=== PATIENT | female | born 1950 | race Caucasian/White ===

== ENCOUNTER 2018-11-09 08:51 | Inpatient (IN) | payer MEDICARE, MEDICAID, SELFPAY ==
[2018-11-04 11:48] VITALS: BMI 24.1
[2018-11-09] VITALS (21 sets, daily range): BP systolic 92–140; BP diastolic 48–83; PULSE 58–84; RESP 9–18; TEMP 36.3–37.1; O2SAT 91–99; BMI 24.1
--- NOTE | 2018-11-09 | DI.RAD.S_ITS ---
PROCEDURE: XR LUMBAR SPINE 2-3V INDICATIONS: L4-5, L5-S1 TLF TECHNIQUE: 2 views of the lumbar spine were acquired. COMPARISON: [facility], CR, XR LUMBAR SPINE 2 OR 3 VIEWS, 10/09/2017, 8:23. [facility], MR, MR LUMBAR SPINE WITHOUT CONTRAST, 10/14/2018, 19:19. FINDINGS: 2 intraoperative fluoroscopy images demonstrate discectomy and posterior fusion at L4-L5 and L5-S1. Surgical hardware appear in expected position. IMPRESSION: Discectomy and posterior fusion at L4-L5 and L5-S1. Dictated by: Delfino Rios M.D. on 11/09/2018 at 15:04 Approved by: Delfino Rios M.D. on 11/09/2018 at 15:05
--- NOTE | 2018-11-09 09:40 | PM.PREOP ---
Pre-operative Note Interval Note History & Physical reviewed/Exam performed by Physician: Yes Changes to H&P: No
[2018-11-09] MEDS: LACTATED RINGERS 1,000 ML 42 ML IV ×3 (10:06→14:57)
--- NOTE | 2018-11-09 10:28 | P.OP_ITS ---
Operative Date/Time/Diagnoses Date of procedure: 11/09/18 Time of procedure: 15:03 Pre-op diagnosis: Lumbar stenosis with radiculopathy Lumbar spondylolisthesis Post-op diagnosis: same Procedure & Clinicians Procedure: L4-5 and L5-S1 TLIF (post/post innerbody fusion) with cages L4, L5, S1 screws Iliac crest bone graft aspirate L4-5 and L5-S1 laminectomies Use of microscope Placement of epidural catheter Same procedure as scheduled: Yes Indications: [age] year old female with intractable pain from stenosis. They had failed conservative management and requested operative intervention. Risks and benefits of surgery were discussed and appropriate consents were obtained. Surgeon: Randall Cloud Death Surveys Coder: Alanna Musa Anesthesia Type: General Operative Notes Findings: None Closure Type: primary Specimen(s): none sent Prosthetic devices, grafts, tissues, transplants, or devices: NuVasive MAS reline screws Globus Rise cage Applied: catheter Estimated Blood Loss (mL): 20 Procedure in detail: The patient was brought to the operating room and intubated on the table. A time-out was performed. They were then rolled over to the well- padded Kavon table in the prone position. Preoperative antibiotics were given. The back was prepped and draped in the standard sterile fashion. Using fluoroscopy, a 4 cm longitudinal incision was made to the right of the midline. We used Bovie to come down to and split the lumbodorsal fascia. Using fluoroscopy and monitoring, we then percutaneously placed Jamshidi needles down the pedicles of L4, L5, and S1 on the right side. These were changed out to guidewires and then we tapped and then placed the NuVasive MAS Reline screw shanks. We then opened up the retractors and used Bovie to clear up the posterolateral gutter as well as medially along the lamina to the spinous processes. A bur was used to decorticate the transverse processes. We brought in the microscope. Using a combination of bur and Kerrison rongeurs, a laminectomy was performed from the right side. We cleared over past the midline and carefully depressed the dura until we were able to decompress the opposite side. We cleared out the neural foramen. This completed the rivera inectomy at L5-S1. We then began the TLIF prep. A complete facetectomy was performed on this side at L5-S1. We carefully cleaned up the remainder of the foramen until we could easily retract the exiting root as well as clearing medially below the dura and expose the disc space. The disc was prepped with bipolar and then an annulotomy was performed. We performed a diskectomy using a combination of paddles, armando, pituitaries, and curettes. We distracted the disc using a paddle and locked the retractor in an open position. We then filled the disc space with Osteocel bone graft. We then placed the globus Rise cage under fluoroscopy and then filled this in with more bone graft. The distraction on the retractor was released to compress down. This completed the posterior interbody fusion portion of the TLIF at L5-S1. We then moved up to the L4-5 level. The retractor was transferred up to the L4 screw. We cleared off the soft tissue medially and from the gutter. The L4 transverse processes was decorticated. We then performed a right-sided laminectomy at L4-5 with the bur and Kerrisons. We reached across the opposite side while carefully depressing the dura with a ball probe and cleared up the central canal and then clear the foramen. This was separate and distinct from a TLIF approach as we had to decompress the canal. We then performed a facetectomy on the right at L4-5. We retracted the dura medially and expose the disc. This was prepped with bipolar. A scalpel used to perform an annulotomy and then we used pituitaries, paddles, Armando, curettes to perform a complete diskectomy at the L4-5 level. bone graft was injected into the disc space and then we placed another globus Rise cage and opened it under fluoroscopic guidance. We packed more bone graft. This completed the posterior interbody portion of the TLIF at L4-5. We realized under fluoroscopy that while distracting across the L4 and L5 screws, the L5 screw had pulled through the inferior aspect of the pedicle. We directly visualized this and could confirm it. The L5 screw was removed. We made a new screw hole plan with fluoroscopy and neuro monitoring and the Jamshidi and then placed a larger 7.5 mm screw at this level. We then placed the screw heads, afia, and locked down the set screws. The wound was copiously irrigated. A small stab incision was made over the PSIS. We used a Jamshidi needle to aspirate several mL of bone marrow from the pelvis. This was mixed with the remaining Osteocel and combined with all of the locally harvested bone graft and placed in the posterolateral gutter for the posterior fusion of the TLIF at L4-5 and L5-S1. An epidural catheter was then placed in the spinal canal by carefully depressing the dura and advancing it 6 cm cephalad under the remaining lamina without resistance. The muscle fascia was closed. The catheter was then injected with a solution containing 4 mL of 0.5% Marcaine, 1 mg Stadol, 4 mg Duramorph, and 100 mcg of fentanyl. This was injected without resistance and the catheter was pulled. We then went to the opposite side. Again using fluoroscopy, a 3 cm incision was made and Bovie was used to come down to split the fascia. Using neural monitoring and fluoroscopy, Jamshidi needles were advanced down the pedicles of L4, L5, S1 on the left side. These were switched over guidewires, tapped, and screws placed. We then placed a afia and locked the set screws on this side. The wound was irrigated. The fascia was closed. Vancomycin powder was placed in the wounds. The superficial and skin were closed. A sterile dressing was placed. The patient was then rolled over extubated and brought to recovery room without complications. Complications: none Condition: stable Disposition: PACU Plan for aftercare: Inpatient. Up with physical therapy. Anticipate discharge to custodial.
[2018-11-09] MEDS: CEFAZOLIN 2 GM/100 ML FROZ.PIGGY IV ×2 (10:36→18:30)
--- NOTE | 2018-11-09 11:13 | SUR.OPER ---
Prone on spine table, head in foam head support, padded chest and pelvic supports, gel pad at knees, lower legs supported by pillows; nipples, genitalia and toes free of pressure, arms secured on foam padded arm boards at <90 degrees abduction. Tape over blanket at thigh secured to table.
[2018-11-09] MEDS: THROMBIN (RECOMBINANT) 5,000 UNIT VIAL 5000 UNIT TOP (11:18)
[2018-11-09] MEDS: BUPIVACAINE 0.5% (PF) 4 ML, MORPHINE-PF 4 MG, BUTORPHANOL 1 MG, fentaNYL 100 MCG INJ (11:19)
[2018-11-09] MEDS: SODIUM CHLORIDE 0.9% 1,000 ML, GENTAMICIN 80 MG IRR (11:20)
[2018-11-09] MEDS: VANCOMYCIN 1,000 MG VIAL 1000 MG TOP (11:47)
--- NOTE | 2018-11-09 14:58 | SUR.PHASEI ---
oxygen decrased to 2l/cannula.
[2018-11-09] MEDS: HYDROMORPHONE 2 MG INJ 0.25 MG IV ×2 (15:21→15:41)
[2018-11-09] MEDS: hydrOXYzine 50 MG/ML INJ 25 MG IM (15:56)
[2018-11-09] MEDS: LACTATED RINGERS 1,000 ML 125 ML IV (16:45)
[2018-11-09] MEDS: CELECOXIB 200 MG CAPSULE 400 MG PO (16:53)
[2018-11-09] MEDS: HYDROCODONE/ACET 5/325 TABLET 2 TAB PO ×2 (17:33→21:50)
[2018-11-09] MEDS: hydrOXYzine pamoate 25 MG CAPSULE PO (17:33)
[2018-11-09] MEDS: NICOTINE 14 PATCH 14 MG TOP (21:38)
[2018-11-09] MEDS: CELECOXIB 200 MG CAPSULE PO (21:38)
[2018-11-09] MEDS: LISINOPRIL 5 MG TABLET PO (21:39)
[2018-11-09] MEDS: DOCUSATE 100 MG CAPSULE PO (21:39)
[2018-11-09] MEDS: PROPRANOLOL 40 MG TABLET 80 MG PO (21:40)
[2018-11-09] MEDS: SERTRALINE 50 MG TABLET 200 MG PO (21:41)
[2018-11-09] MEDS: clonazePAM 0.5 MG TABLET PO (21:50)
[2018-11-09] MEDS: CYCLOBENZAPRINE 10 MG TABLET PO (21:50)
--- NOTE | 2018-11-09 22:21 | PC.NURSE ---
Pt arrived on floor from PACU at 1630. 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 Pt began to de-sat to the low 80s and then would return to mid 90s but overall unable to sustain sats without O2. Pt reports she has hx of sleep apnea but does not use a c pap machine. Dressing to mid back CDI. Rates pain at 5/10. Pain controlled with vicodin and vistaril given earlier. Pt restless at times and using buttons to move position in bed. Dtr called and said pt has hx of confusion with pain meds. Pt does not appear to be confused but is very restless at times. Oriented to self and place. Li catheter draining clear yellow urine. Pt eating and drinking well without nausea. O2 sats = 97% on 2L
[2018-11-10] MEDS: LACTATED RINGERS 1,000 ML 125 ML IV (00:45)
[2018-11-10] MEDS: CEFAZOLIN 2 GM/100 ML FROZ.PIGGY IV (02:38)
[2018-11-10] MEDS: HYDROCODONE/ACET 5/325 TABLET 2 TAB PO ×2 (05:38→10:26)
[2018-11-10 05:50] VITALS: BP 93/53; PULSE 69; RESP 16; TEMP 36.6; O2SAT 99
[2018-11-10 06:22] LABS: Hematocrit 27.2 % (36-46); Hemoglobin 9.1 g/dL (12.0-16.0)
--- NOTE | 2018-11-10 07:58 | PM.PNPO.1 ---
Subjective Date Patient Seen: 11/10/18 Time Patient Seen: 07:58 Interval history: Pain is 6 at rest, 10 with activity. All across the back, nothing more in the legs. Exam Vital Signs (past 8 hours): - 11/10/18 05:50 Temperature 97.9 F Pulse Rate 69 Respiratory Rate 16 Blood Pressure 93/53 L Pulse Oximetry 99 Oxygen Delivery Method Nasal Cannula Oxygen Flow Rate 2 Const Orientation: alert and oriented x3 Back/Spine/Pelvis Other: Mild drainage. 5/5 motor both lower extremities. Objective Labs Result Diagrams: 11/10/18 06:00 Labs: Laboratory Results - last 24 hr 11/10/18 06:00 Hgb 9.1 L Hct 27.2 L Assessment & Plan Post-op Postoperative Procedures Operation Date: 11/09/18 10:45 Actual Procedures Side Surgeon p L4-5, L5-S1 TLIF w/Instru. fusion & bone graft Randall Cloud MD She is stable. Mobilize today with physical therapy. Anticipate discharge to jail in a few days. Quality VTE Deep Vein Thrombosis/Pulmonary Embolism Present on Admission: No
[2018-11-10 08:53] VITALS: PULSE 70; RESP 18; O2SAT 97
[2018-11-10 09:00] VITALS: BP 102/60; PULSE 72; RESP 16; TEMP 36.7; O2SAT 96
[2018-11-10 09:03] VITALS: O2SAT 95
[2018-11-10] MEDS: CELECOXIB 200 MG CAPSULE PO ×2 (09:03→20:52)
[2018-11-10] MEDS: clonazePAM 0.5 MG TABLET PO ×4 (09:03→20:57)
[2018-11-10] MEDS: NICOTINE 14 PATCH 14 MG TOP (09:05)
[2018-11-10] MEDS: DOCUSATE 100 MG CAPSULE PO ×2 (09:05→20:54)
[2018-11-10] MEDS: CYCLOBENZAPRINE 10 MG TABLET PO ×4 (09:09→21:33)
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
[2018-11-10] MEDS: HYDROMORPHONE 0.5 MG INJ IV (12:57)
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
[2018-11-10] MEDS: OXYCODONE IR 5 MG TABLET 10 MG PO ×3 (14:37→20:52)
--- NOTE | 2018-11-10 15:13 | PC.NURSE ---
Ortho: Pain control issues, Tried vicodin, flexaril, and she took her clonazepam. Vicodin lasted 2 hours and was given IV dilaudid and Dr. Cloud was called and order received for oxycodone. Oxycodone working better for pain relief. More comfortable this afternoon. Did get up with PT and sat in chair for a short time. Walked short distance around the bed. Pt is having sciatica and numbness type sensation down the right leg. This has remained unchanged through out the day and was present preop. BP 90's to 100's systolic, is taking po fluids. BP meds held and JOSE Munoz was made aware. Sl dizzy when up but BP posturals checked and there was no change. Was able to amb. Resting quietly at the moment.
[2018-11-10 15:39] VITALS: BP 137/88; PULSE 73; RESP 18; TEMP 37.3; O2SAT 96
--- NOTE | 2018-11-10 16:08 | CM.DANOTE ---
Patient is a 68 year old female who was admitted for planned Ortho Surgery. Pt has MCR and LAURIE for insurance and her PCP is Dr. Martinez. EMR was reviewed. Per Dr. Cloud, pt could benefit from SNF at d/c. Per PT, recommending SNF at d/c. SW met bedside with pt and explained role and updated white board and pt confirms that she lives at home alone in [facility] and is independent with ADL's at baseline although has had constant pain for the past 3 months without relief. Pt denies any hx of HH or SNF but states she feels SNF is needed before safe d/c home. SW provided the SNF Choice List and pt requests referrals made to [facility] and [facility]. SW left ms requesting [facility] fax clinical referral to both SNF's in the morning as end of SW shift and staff gone for the day. Plan: SW to follow for referrals to [facility] and [facility] tomorrow morning and review to determine which SNF can accept pt at d/c. ALESSANDRA Ayon Discharge Planning/Care Management CM Discharge Assessment Start: 11/10/18 16:07 Freq: Status: Active Protocol: Document 11/10/18 16:07 BF (Rec: 11/10/18 16:08 BF [id number]) Discharge Planning Assessment Assigned Crester ALESSANDRA Sullivan Advance Directives? No History Provided By Patient Medical Record Has Patient been admitted in last 30 No days? Prior Living Arrangements House Household Members none Type of transporation used prior to Drives own vehicle admit Independent with ADL's Yes Is patient alert and oriented? Yes Patient/Family Preference Senior Care Facility Barriers to Discharge No Discharge Plan Senior Care Facility Referrals Initiated Senior Care Medicare Choice List Provided Yes SNF/HH Preference [facility] Whiteboard Updated in Patient Room with Yes name and ext. # of Crester Review Status In Process Please Provide Date Initial DC 11/10/18 Assessment Was Performed Next Review Type Continued Stay Review Pre-Anesthesia Assessment Start: 11/04/18 11:48 Freq: Status: Complete Protocol: Document 11/04/18 11:48 CAB (Rec: 11/04/18 12:48 CAB [id number]) Pre-Anesthesia Assessment Patient Information Reviewed Via Phone Assessment Assessment Completed With Patient Diagnostic Results CBC EKG Comment Outside labs/EKG scanned to record Primary Care Provider Trista Martinez Medical Clearance Received Yes Seen Specialist in Last 12 Months Yes Specialist Seen Orthopedist Primary Language Belarusian Student Admissions Clerk Required No Height 168.91 cm Weight 68.946 kg Body Mass Index (BMI) 24.1 Hearing Ability Normal Visual Assist Magnifying Glass Dentition Type Teeth, Natural Present Teeth, Broken Teeth, Missing Barriers to Learning Memory Other Aids No Comment Hx small vessel brain disease per pt Hx Anesthesia Reactions No Hx Family Anesthesia Reaction No Hx Malignant Hyperthermia No Hx Blood Transfusions No Anesthesia Review Requested No 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 No Does patient have METZ/SOB No Hx Sleep Apnea Yes Currently Taking a Beta Kim No Can You Climb a Flight of Stairs Without Yes SOB Hx Chest Pain No Hx SOB No Hx Syncope or Dizziness No Anti-Coagulant Therapy No Has a Shop Welder No Cardiac Testing Yes: Stress test 09/14/17 scanned to record Hx Pacemaker/ICD No Pacemaker Rep Required? No Cardiac Clearance Received Not Applicable Diet Type At Home Regular dysphagia No Urinary Catheter Present No Hx Urinary Self Catheterization No Diabetes No Patient No Lactating No Hx Drug Resistant Organism No Presence of External or Internal Medical No Devices Have you traveled outside the [facility] in the last 30 days? Marital Status Lives With family Prior Living Arrangements House Number of Floors (Floors) Two Floors Support System Child/Children Sibling(s) Does the Patient Have Assistance After Minimal assistance available Surgery from family Patient Discharge Plan Description Senior Care Facility/Rehab Comment Lives w/sister, requesting to go to a snf Feels Safe in Current Environment Yes Been Physically Hurt or Threatened By a No Person in Current Environment Do you have thoughts of harming yourself None or others? Are you currently considering suicide? No Do you have a plan to hurt yourself or No Plan others? Do You Have Any Spiritual Beliefs That No May Affect Your HC Choices? Do You Have Any Cultural Practices That No May Affect Your HC Choices? Spiritual Referral None Who Can We Speak to About Patient's Care Family, friends Identifying Code for Release of Patient Declines to issue Information Health Care Proxy/Next of Kin Linsey (daughter) Sherrie ( daughter) Health Care Proxy Phone Number Linsey: [phone] Sherrie: pt to update dos Emergency Contact Name Linsey (daughter) Sherrie ( daughter) Mary (sister) Emergency Contact Phone Number Linsey: [phone] Sherrie: pt to update dos Mary: Advance Directives? No PAC Instructions Durable medical equipment Medications to take/avoid Nasal antibiotic No ETOH/petroleum product on skin DOS NPO Post-op transportation Pre-surgical wash Sturdy shoes/comfortable clothes Do not bring valuables and remove jewelry
--- NOTE | 2018-11-10 16:09 | PT.IPTN ---
Current Diagnoses Spondylolisthesis, lumbar region (11/09/18) Spinal stenosis, lumbar region with neurogenic claudication (11/09/18) Arthrodesis status (11/09/18) Surgery Performed Operation Date: 11/09/18 10:45 Actual Procedures p L4-5, L5-S1 TLIF w/Instru. fusion & bone graft - Randall Cloud MD Physical Therapy Treatment Note M2 PT-IP Current Condition Start: 11/10/18 12:46 Freq: NEEDED Status: Active Protocol: Document 11/10/18 10:13 AB (Rec: 11/10/18 12:59 AB [id number]) Physical Therapy Current Condition Current Condition Evaluation Date 11/10/18 Treatment Diagnosis s/p L4-5, L5-S1 TLIF/lami; difficulty in walking Onset Date 11/09/18 Precautions Lumbar Precautions Log Roll No Twisting Limit Bending Lifting Restriction of 10 lbs Gait Belt above Incisional Area Other Precautions Falls M3 PT-IP Subjective Start: 11/10/18 12:46 Freq: NEEDED Status: Active Protocol: Document 11/10/18 16:09 GGD (Rec: 11/10/18 16:09 GGD [id number]) Subjective Physical Therapy Visit Type Type Patient Refusal Notes Pt refused states that she having increase pain and is very tired. Will see in AM.
[2018-11-10] MEDS: hydrOXYzine pamoate 25 MG CAPSULE PO (17:09)
[2018-11-10 19:38] VITALS: BP 100/49; PULSE 78; RESP 16; TEMP 37; O2SAT 96
[2018-11-10] MEDS: PROPRANOLOL 40 MG TABLET 80 MG PO (20:52)
[2018-11-10] MEDS: SERTRALINE 50 MG TABLET 200 MG PO (20:55)
[2018-11-11] MEDS: OXYCODONE IR 5 MG TABLET 10 MG PO ×4 (00:50→19:26)
[2018-11-11 00:58] VITALS: BP 107/60; PULSE 70; RESP 16; TEMP 36.7; O2SAT 94
--- NOTE | 2018-11-11 01:22 | PC.NURSE ---
Addendum entered by Zoë Singh R.N. 11/11/18 05:46: Awakened for vitals and initially declined pain medication wanting to wait until next shift. When told that would be 7:30am she decided to take pain med. States pain is 5/10, worse with movement and requests 10mg rather than 5mg and it works better. Ice pack also applied for additional discomfort. Declined to have catheter removed until after PT today. Original Note: Patient is alert and oriented. Breath sounds CTA with RA sat of 94%. HRR. Denies nausea. BT present and states she is passing flatus. Indwelling catheter is patent with clear, yellow urine noted. Has been repositioning herself. Dressing to back is intact with quarter size amount of sero-sanguinous drainage noted and outlined. States pain with movement is 7/10; medicated with Oxycodone and ice pack applied for additional comfort. Complains of numbness in right foot but has good capillary refill and able to move extremity and has equal sensation on bilateral LE. Had foot SCD's on at shift change but are now off and patient states she is unable to sleep with them on; reminded to ankle wave when awake and she verbalizes understanding of risks. Fall risk score is moderate; bed alarm is activated.
[2018-11-11 05:54] VITALS: BP 102/75; PULSE 70; RESP 16; TEMP 37.1; O2SAT 95
[2018-11-11 08:00] VITALS: BP 118/70; PULSE 65; RESP 16; TEMP 36.4; O2SAT 95
[2018-11-11] MEDS: NICOTINE 14 PATCH 14 MG TOP (08:04)
[2018-11-11] MEDS: CELECOXIB 200 MG CAPSULE PO ×2 (08:04→22:14)
[2018-11-11] MEDS: DOCUSATE 100 MG CAPSULE PO (08:04)
[2018-11-11] MEDS: hydrOXYzine pamoate 25 MG CAPSULE PO (08:04)
[2018-11-11] MEDS: clonazePAM 0.5 MG TABLET PO (08:08)
[2018-11-11] MEDS: SODIUM CHLORIDE 0.9% FLUSH 10 ML IV ×3 (08:09→22:15)
--- NOTE | 2018-11-11 08:11 | PM.PNPO.1 ---
Subjective Date Patient Seen: 11/11/18 Time Patient Seen: 08:11 Interval history: Pain is very severe. Starting the back and now running down the right leg again. Does not feel her pain medication is adequate. Exam Vital Signs (past 8 hours): - 11/11/18 00:58 11/11/18 05:54 Temperature 98.0 F 98.7 F Pulse Rate 70 70 Respiratory Rate 16 16 Blood Pressure 107/60 102/75 Pulse Oximetry 94 95 Fraction of Inspired Oxygen 21 Oxygen Delivery Method Room Air Oxygen Flow Rate 0 Const Orientation: alert and oriented x3 Back/Spine/Pelvis Other: Mild drainage. 5/5 motor both lower extremities. Objective Labs Result Diagrams: 11/10/18 06:00 Assessment & Plan Post-op Postoperative Procedures Operation Date: 11/09/18 10:45 Actual Procedures Side Surgeon p L4-5, L5-S1 TLIF w/Instru. fusion & bone graft Randall Cloud MD Think the flared up since yesterday. I am going to increase her pain medication as well as give her some IV steroids to try to bring down the inflammatory pain. Quality VTE Deep Vein Thrombosis/Pulmonary Embolism Present on Admission: No
[2018-11-11] MEDS: OXYCODONE IR 5 MG TABLET 15 MG PO ×2 (08:27→11:30)
[2018-11-11] MEDS: DEXAMETHASONE 10 MG/ML VIAL IV (08:58)
--- NOTE | 2018-11-11 11:23 | OT.IP.TRT ---
Current Diagnoses Spondylolisthesis, lumbar region (11/09/18) Spinal stenosis, lumbar region with neurogenic claudication (11/09/18) Arthrodesis status (11/09/18) Surgery Performed Operation Date: 11/09/18 10:45 Actual Procedures p L4-5, L5-S1 TLIF w/Instru. fusion & bone graft - Randall Cloud MD Occupational Therapy Treatment Note M2 OT-IP Current Condition Start: 11/10/18 16:34 Freq: Status: Active Protocol: Document 11/10/18 16:34 PJM (Rec: 11/10/18 16:56 PJM [id number]) Occupational Therapy Current Condition Current Condition Evaluation Date 11/10/18 Treatment Diagnosis decreases self care, mobility s/p L4-S1 TLIFw/lami's Diagnosis Onset Date 11/09/18 Post Operative Precautions Lumbar Precautions Log Roll No Twisting Limit Bending Lifting Restriction of 10 lbs Gait Belt above Incisional Area Other Precautions fall risk, confusion (pt has hx of confusion on when on pain meds per chart notes) M3 OT- IP Subjective and Pain Start: 11/10/18 16:34 Freq: Status: Active Protocol: Document 11/11/18 11:23 PJM (Rec: 11/11/18 15:39 PJM [id number]) OT- Subjective Occupational Therapy Visit Type Type Treatment Note Visit Start Time 10:52 Visit Stop Time 11:23 Total Visit Minutes 31 Occupational Therapy Visit Comments Patient Comments I am due for pain meds in half an hour. This chair is not too comfortable. Patient/Caregiver Goals to go to rehab to get stronger , be able to do stairs and some cooking OT Pain Assessment Pain When Pain Assessed After Treatment Pain Present Pain Present Pain Reported Location Lower Back Intensity 4 Scale Used Numeric (1 - 10) Description Aching Acute Pain Behaviors Facial Grimacing Guarding Management Techniques Apply Cold Distraction Re-positioning Timing of Activity with Medications M4 OT- IP ADL's Start: 11/10/18 16:34 Freq: Status: Active Protocol: Document 11/11/18 11:23 PJM (Rec: 11/11/18 15:39 PJM [id number]) OT ADL-Grooming General Evaluation Grooming Ability Contact Guard Assistance Areas Needing Assistance Retrieving/Set-up of Grooming Items Combing/Brushing Hair Face Washing Comments OT Grooming Comments Pt had one loss of balance to the R when standing at sink due to R LE pain. OT ADL-Oral Care General Eval Oral Care Ability Contact Guard Assistance Devices Oral Care Devices Toothbrush Comments Oral Care Comments due to decreased standing balance OT ADL-Dressing General Eval Lower Body Dressing Ability Minimal Assistance Areas Needing Assistance Underpants/Brief Socks Assistive Devices Dressing Assistive Devices Air Control Electronics Operator Sock Aid Comments OT Dressing Comments practiced donning brief with scientologist and socks with sock aid, removing socks with scientologist using new equipt provided yesterday, pt needs mod verbal cues for unfamiliar techniques OT ADL-Toileting Comments OT Toileting Comments did not occur this session OT ADL-Bathing Bathing Type Bathing Type Shower Comments OT Bathing Comments pt would like to shower tomorrow M6 OT- IP Functional Cognition Start: 11/10/18 16:34 Freq: Status: Active Protocol: Document 11/11/18 11:23 PJ (Rec: 11/11/18 15:[address] [facility] [id number]) Cognitive Factors Limiting Selfcare Function Cognitive Ability Level of Alertness Alert Patient Orientation Name Age Birthday Month Date Year Day of Week Place Situation Attention Span Ability Capable of Focused Attention Capable of Sustained Attention Ability to Follow Commands Able to Follow One Step Commands Cognitive Comments Cognitive Assessment Comments Pt recalls 3/3 lumbar precautions, needs min cues to apply them during functional tasks. M7 OT- IP Mobility and Balance Start: 11/10/18 16:34 Freq: Status: Active Protocol: Document 11/11/18 11:23 PJM (Rec: 11/11/18 15:[address] [facility] [id number]) OT-Transfer Assessment Sit to and From Stand Sit to and from Stand Contact Guard Assistance Transfers Transfer Ability Contact Guard Assistance Technique Transfer Destination Chair Transfer Technique Stand Step Pivot Devices Transfer Assistive Devices Gait Belt Front Wheeled Walker OT- Gait Assessment Gait Gait Assistance Required: Contact Guard Assist Distance (Feet) 15 Assistive Devices Assistive Device Gait Belt Front Wheeled Walker Comments Gait Ability Comments to sink and back OT- Balance Assessment Sitting Balance and Reactions Static Sitting Balance Ability Good Dynamic Sitting Balance Ability Good Standing Balance and Reactions Static Standing Balance Ability Good Dynamic Standing Balance Ability Fair M9 OT- IP Assessment and Plan Start: 11/10/18 16:34 Freq: Status: Active Protocol: Document 11/11/18 11:23 PJM (Rec: 11/11/18 15:[address] [facility] [id number]) OT Summary Assessment and Plan Potential Rehabilitation Potential Good Summary OT Impairments Pain Strength Balance Functional Mobility Grooming Dressing Toileting Bathing Toilet Transfers Shower Transfers Progress Towards Goals Progressing Toward Goals Assessment Summary Pt making progress today but still has decreased activity tolerance due to pain and decreased balance standing at sink for grooming due to RLE pain. Pt demonstrating increased independence in lower body dressing with use of adaptive equipment, but needs further practice to be completely independent. Pt would like to shower tomorrow. Recommend short term SNF at d/c to increase endurance/ independence/safety in all self care, functional mobility prior to return home. Goals Grooming Goal Standby Assistance Dressing Goal Standby Assistance Toileting Goal Standby Assistance Bathing Goal Minimal Assistance Toilet Transfer Goal Standby Assistance Shower Transfer Goal Contact Guard Assistance Patient/Caregiver Education Goal Demonstrate Post-Op Precautions Demonstrate Energy Conservation and Pacing Caregiver Independent Assisting Patient Days to Meet Goals 3 Frequency of Treatment Frequency Of Treatment Once a Day Treatment Plan OT Treatment Plan ADL Training Functional Cognition Training Patient/Family Education Discharge Planning Discharge Recommendations OT Discharge Recommendations SNF Rehab Home Equipment Needs to be determined pending progress
[2018-11-11 11:30] VITALS: BP 94/61; PULSE 67; RESP 16; TEMP 36.3; O2SAT 96
--- NOTE | 2018-11-11 12:45 | PC.NURSE ---
Day shift: Pain better controlled with the 15mg PO oxycodone. Dressing changed and the 2 op sites look good. No s/s of infection. Well approximated.
[2018-11-11] MEDS: DEXAMETHASONE 4 MG/ML VIAL IV ×2 (13:43→22:13)
--- NOTE | 2018-11-11 13:58 | PT.IPTN ---
Current Diagnoses Spondylolisthesis, lumbar region (11/09/18) Spinal stenosis, lumbar region with neurogenic claudication (11/09/18) Arthrodesis status (11/09/18) Surgery Performed Operation Date: 11/09/18 10:45 Actual Procedures p L4-5, L5-S1 TLIF w/Instru. fusion & bone graft - Randall Cloud MD Physical Therapy Treatment Note M2 PT-IP Current Condition Start: 11/10/18 12:46 Freq: NEEDED Status: Active Protocol: Document 11/10/18 10:13 AB (Rec: 11/10/18 12:59 AB [id number]) Physical Therapy Current Condition Current Condition Evaluation Date 11/10/18 Treatment Diagnosis s/p L4-5, L5-S1 TLIF/lami; difficulty in walking Onset Date 11/09/18 Precautions Lumbar Precautions Log Roll No Twisting Limit Bending Lifting Restriction of 10 lbs Gait Belt above Incisional Area Other Precautions Falls M3 PT-IP Subjective Start: 11/10/18 12:46 Freq: NEEDED Status: Active Protocol: Document 11/11/18 13:52 GGD (Rec: 11/11/18 13:58 GGD [id number]) Subjective Physical Therapy Visit Type Type Treatment Note Visit Start Time 13:25 Visit Stop Time 13:50 Total Visit Minutes 25 Number of MAT WEAVER Visits 2 Physical Therapy Visit Comments Patient Comments Pt states she is tired, but will get up with therapy. Therapy Pain Assessment Pain When Pain Assessed At Rest Pain Present Pain Present Pain Reported M4 PT-IP Mobility and Gait Start: 11/10/18 12:46 Freq: NEEDED Status: Active Protocol: Document 11/11/18 13:52 GGD (Rec: 11/11/18 13:58 GGD [id number]) PT-Bed Mobility Assessment Rolling Level of Assist Standby Assistance Supine to Sit Supine to Sit Contact Guard Assistance Bedrails Sit to Supine Sit to Supine Contact Guard Assistance Bedrails Scooting Scooting to Edge of Bed Standby Assistance PT-Transfer Assessment Sit to and From Stand Sit to and from Stand Contact Guard Assistance 1 Person Assistance Use of Upper Extremities Equipment Transfer Assistive Device Gait Belt Front Wheeled Walker Transfers Transfer Destination Chair Transfer Ability Level of Assist Contact Guard Assistance 1 Person Assistance Use of Upper Extremities Comments Mobility Comments Pt needed min cues for full log roll. Gait Assessment Gait Gait Assistance Required: Contact Guard Assist Distance (Feet) 100 Assistive Devices Assistive Device Gait Belt Front Wheeled Walker Orthotic/Prosthetic Devices or Brace: No Gait Deviations General Gait Pattern Antalgic Decreased Stride Length Decreased Feet Clearance Narrow Based Gait Factors Limiting Gait Function Factors Limiting Gait Function Decreased Sensation Decreased Strength Limited Range of Motion Pain Poor Balance M5 PT-IP Objective Assessments Start: 11/10/18 12:46 Freq: NEEDED Status: Active Protocol: Document 11/10/18 10:13 AB (Rec: 11/10/18 12:59 AB [email or web address]) Orientation Orientation/Cognition Level of Alertness Alert Orientation Name Place Situation Language Function Ability No Deficits Noted Safety Awareness Decreased Safety Awareness Memory Description Short Term Impaired Gross Range of Motion Lower Extremity ROM Assessment Within Functional Limits Strength Lower Extremity Strength Assessment Bilaterally Impaired Hip 3+/5 Knee 3+/5 Ankle 3+/5 Sensation Assessment Sensation Gross Sensation Right LE Impaired Light Touch Impaired Proprioception (Position) Impaired Sensation Description Numbness Pain Muscle Tone Muscle Tone WNL Yes M6 PT-IP Treatment Start: 11/10/18 12:46 Freq: NEEDED Status: Active Protocol: Document 11/11/18 13:52 GGD (Rec: 11/11/18 13:58 GGD [id number]) Physical Therapy Treatment Education Education Provided Precautions M7 PT-IP Assessment and Plan Start: 11/10/18 12:46 Freq: NEEDED Status: Active Protocol: Document 11/11/18 13:52 GGD (Rec: 11/11/18 13:58 GGD [id number]) PT Summary Assessment and Plan Summary Assessment Summary Pt improving with mobility. She was able to progress gait distance. She needed cues for full log roll and precautions. Pt would benefit from SNF rehab to improve functional mobility. Frequency of Treatment Frequency Of Treatment Twice a Day Recommendations To Nursing Amount of Assist Needed 1 Person Assist Discharge Recommendations PT Discharge Recommendations SNF Rehab
--- NOTE | 2018-11-11 14:48 | CM.DPNOTE ---
Met w/pt to review [facility] vs [facility]; both accept for admission tomorrow. [facility] Updated both Jill at [facility] and Grace at [facility] re: above. [facility] will be prepared for pt's DC Thursday. PAS[facility] completed. OLIVIER
[2018-11-11 15:15] VITALS: BP 121/64; PULSE 74; RESP 18; TEMP 36.5; O2SAT 96
[2018-11-11 19:29] VITALS: BP 118/72; PULSE 67; RESP 18; TEMP 36.9
[2018-11-11] MEDS: OXYCODONE IR 5 MG TABLET PO (20:41)
[2018-11-11] MEDS: SERTRALINE 50 MG TABLET 200 MG PO (22:14)
[2018-11-11] MEDS: clonazePAM 0.5 MG TABLET 1 MG PO (22:21)
[2018-11-12 01:20] VITALS: BP 135/84; PULSE 70; RESP 18; TEMP 37; O2SAT 98
[2018-11-12] MEDS: DEXAMETHASONE 4 MG/ML VIAL IV ×5 (01:33→23:56)
[2018-11-12] MEDS: SODIUM CHLORIDE 0.9% FLUSH 10 ML IV ×3 (01:34→20:14)
[2018-11-12] MEDS: OXYCODONE IR 5 MG TABLET 15 MG PO ×5 (01:34→20:12)
--- NOTE | 2018-11-12 02:44 | PC.NURSE ---
Addendum entered by Zoë Singh R.N. 11/12/18 06:00: Slept most of night. States pain at rest is 5/10 this morning and 7/10 with movement. Medicated with 15mg Oxycodone. Original Note: Patient is alert and oriented. Breath sounds CTA with RA sat of 98%. HRR. Denies nausea. BT present and is passing flatus but has not had a BM since 11/12 but patient states that is her normal. Able to turn self in bed. Up to bathroom with walker and 1 assist and is steady on feet and denies any weakness. Does, however, complain of 7/10 back pain which radiates into right buttock sciatica; medicated with scheduled Decadron and 15mg of Oxycodone. Patient states pain is worse tonight. Dressing to back is CDI; was changed yesterday. Still states plantar surface of right foot is numb otherwise CMS is intact. Fall risk score is moderate and bed alarm is activated.
[2018-11-12 06:10] VITALS: BP 142/76; PULSE 76; RESP 18; TEMP 36.7; O2SAT 96
--- NOTE | 2018-11-12 08:00 | PM.PNPO.1 ---
Subjective Date Patient Seen: 11/12/18 Time Patient Seen: 08:01 Interval history: Back is better with meds but when she stands the R leg pain is sharp and running from buttocks down back of leg. Exam Vital Signs (past 8 hours): - 11/12/18 01:20 11/12/18 06:10 Temperature 98.6 F 98.0 F Pulse Rate 70 76 Respiratory Rate 18 18 Blood Pressure 135/84 142/76 H Pulse Oximetry 98 96 Fraction of Inspired Oxygen 21 Oxygen Delivery Method Room Air Oxygen Flow Rate 0 Const Orientation: alert and oriented x3 Back/Spine/Pelvis Other: cdi, 5/5 motor BLE Objective Labs Result Diagrams: 11/10/18 06:00 Assessment & Plan Post-op Postoperative Procedures Operation Date: 11/09/18 10:45 Actual Procedures Side Surgeon p L4-5, L5-S1 TLIF w/Instru. fusion & bone graft Randall Cloud MD I'm going to check a CT. I would have expected post op inflammation to improve with the steroids, but it didn't seem to help. Quality VTE Deep Vein Thrombosis/Pulmonary Embolism Present on Admission: No
[2018-11-12] MEDS: hydrOXYzine pamoate 25 MG CAPSULE PO (08:03)
--- NOTE | 2018-11-12 08:16 | DI.CT.S_ITS ---
PROCEDURE: CT LUMBAR SPINE WO CON INDICATIONS: Right leg pain post surgery two days ago TECHNIQUE: Noncontrast 3 mm thick sections acquired from the T12 level to the sacrum. Sagittal and coronal reformats were constructed. For radiation dose reduction, the following was used: automated exposure control. COMPARISON: [facility], MR, MR LUMBAR SPINE WITHOUT CONTRAST, 10/14/2018, 19:19. [facility], CR, XR LUMBAR SPINE 2-3V, 11/09/2018, 11:08. FINDINGS: Image quality: Excellent. Bones: There is grade 1 anterolisthesis at L4-L5. There is discectomy, right stewart-laminectomy and posterior fusion at L5-L5 and L5-S1. Metallic artifacts from pedicular screws and fusion rods partially obscure the adjacent structures. No acute vertebral body compression fractures. No suspicious lytic or blastic bony lesions. Central spinal caliber is of normal overall caliber. No pars defects. T12-L1: Preserved disc height. There is posterior disc bulge and disc osteophyte complex. The central canal is mildly narrowed. No foraminal stenosis. L1-L2: Preserved disc height. There is posterior disc bulge and disc osteophyte complex. The central canal is mildly narrowed. No foraminal stenosis. L2-L3: Preserved disc height. There is posterior disc bulge and disc osteophyte complex. The central canal is mildly narrowed. No foraminal stenosis. L3-L4: Preserved disc height. There is posterior disc bulge and disc osteophyte complex. The central canal is mildly narrowed. No foraminal stenosis. L4-L5: Discectomy, right hemilaminectomy and posterior fusion. There is a disc prosthesis. Pedicular screws and fusion rods are noted and appear intact and appropriate in position. Amorphous soft tissue and small pockets of air noted in the surgical bed involving right posterior lateral aspect of L4-L5, which is suboptimally visualized due to artifacts. There may be compression of the thecal sac and encroachment of the right neural foramen. There is severe left and moderate right facet arthropathy. The central canal is patent. Moderate bilateral foraminal stenosis. L5-S1: Discectomy, right hemilaminectomy and posterior fusion. There is a disc prosthesis. Pedicular screws and fusion rods are noted and appear intact and appropriate in position. Amorphous soft tissue and small pockets of air are noted in the surgical bed involving right posterior lateral aspect of L4-L5, which is suboptimally visualized due to artifacts. There may be compression of the thecal sac and encroachment of the right neural foramen. There is severe left and moderate right facet arthropathy. The central canal is patent. Moderate bilateral foraminal stenosis. Soft tissues: There is subcutaneous gas posterior to the lumbar spine, centered related to recent surgery. No retroperitoneal masses or hematomas. Visualized aorta is normal in caliber. IMPRESSION: 1. There are postsurgical changes related to recent discectomy, right hemilaminectomy and posterior fusion at L4-L5 and L5-S1. Amorphous soft tissue and small pockets of air collections noted in the right posterior lateral aspect of L4-L5 and L5-S1 extending to the neural foramina. There is suboptimally visualization of the area secondary to streaking metallic artifacts from surgical hardware. Differential diagnoses include post surgical inflammation, hematoma and less likely post surgical infection. There may be compression of the thecal sac and encroachment of the right neural foramen at L4-L5 and L5-S1. 2. Subcutaneous gas posterior to lumbar spine likely related to recent surgery. 3. Degenerative disc and facet disease at other levels as described. Dictated by: Delfino Rios M.D. on 11/12/2018 at 8:13 Approved by: Delfino Rios M.D. on 11/12/2018 at 8:41
--- NOTE | 2018-11-12 08:17 | PC.NURSE ---
Day shift: Pt off unit for CT scan at approx 0800.
[2018-11-12] MEDS: NICOTINE 14 PATCH 14 MG TOP (09:35)
[2018-11-12] MEDS: DOCUSATE 100 MG CAPSULE PO (09:35)
[2018-11-12] MEDS: LISINOPRIL 5 MG TABLET PO ×2 (09:36→21:39)
[2018-11-12] MEDS: CELECOXIB 200 MG CAPSULE PO ×2 (09:36→20:16)
[2018-11-12] MEDS: PROPRANOLOL 40 MG TABLET 80 MG PO ×2 (09:36→21:39)
--- NOTE | 2018-11-12 10:30 | OT.IP.TRT ---
Current Diagnoses Spondylolisthesis, lumbar region (11/09/18) Spinal stenosis, lumbar region with neurogenic claudication (11/09/18) Arthrodesis status (11/09/18) Surgery Performed Operation Date: 11/09/18 10:45 Actual Procedures p L4-5, L5-S1 TLIF w/Instru. fusion & bone graft - Randall Cloud MD Occupational Therapy Treatment Note M2 OT-IP Current Condition Start: 11/10/18 16:34 Freq: Status: Active Protocol: Document 11/10/18 16:34 PJM (Rec: 11/10/18 16:56 PJM [id number]) Occupational Therapy Current Condition Current Condition Evaluation Date 11/10/18 Treatment Diagnosis decreases self care, mobility s/p L4-S1 TLIFw/lami's Diagnosis Onset Date 11/09/18 Post Operative Precautions Lumbar Precautions Log Roll No Twisting Limit Bending Lifting Restriction of 10 lbs Gait Belt above Incisional Area Other Precautions fall risk, confusion (pt has hx of confusion on when on pain meds per chart notes) M3 OT- IP Subjective and Pain Start: 11/10/18 16:34 Freq: Status: Active Protocol: Document 11/12/18 10:30 PJM (Rec: 11/12/18 11:38 PJM [id number]) OT- Subjective Occupational Therapy Visit Type Type Treatment Note Visit Start Time 09:52 Visit Stop Time 10:30 Total Visit Minutes [address] Cloud in during this session and states CT scan looks good, but he will keep pt another day for IV steroids. Occupational Therapy Visit Comments Patient Comments I feel a little shaky today. BP 118/78 HR 73 O2 sats 97 on room air Patient/Caregiver Goals to get stronger and be independent with self care and stairs before going home OT Pain Assessment Pain When Pain Assessed After Treatment Pain Present Pain Present Pain Reported FLACC Pain Scale Face No particular expression Legs Normal position; relaxed Activity Quiet, moves easily Cry No cry (awake or asleep) Consolability Reassurable with touch FLACC Total 1 Location Right Buttock Intensity 5 Scale Used pt has difficulty using pain scale Description Aching Acute M4 OT- IP ADL's Start: 11/10/18 16:34 Freq: Status: Active Protocol: Document 11/12/18 10:30 PJM (Rec: 11/12/18 11:38 PJM [id number]) OT ADL-Grooming General Evaluation Grooming Ability Standby Assistance Areas Needing Assistance Combing/Brushing Hair Comments OT Grooming Comments better weight bearing on RLE when standing at sink today, no loss of balance OT ADL-Oral Care General Eval Oral Care Ability Standby Assistance Comments Oral Care Comments pt needs cues to remember to use FWW when ambulating away from sink OT ADL-Toileting General Evaluation Toileting Ability Standby Assistance Areas Needing Assistance Manage Clothing Perform Perineal Hygiene Comments OT Toileting Comments high toilet with FWW OT ADL-Bathing Bathing Type Bathing Type Sponge Bath General Evaluation Bathing Ability Standby Assistance Areas Needing Assistance Retrieving/Setting Up Items Comments OT Bathing Comments pt declines to shower today due to fatigue, pt completed upper body frontal sponge bath and dipak care with SBA in sitting and standing; pt needs verbal cues to avoid twisting and bending M6 OT- IP Functional Cognition Start: 11/10/18 16:34 Freq: Status: Active Protocol: Document 11/12/18 10:30 PJ (Rec: 11/12/18 11:38 [facility] [id number]) Cognitive Factors Limiting Selfcare Function Cognitive Ability Level of Alertness Alert Patient Orientation Name Month Date Year Place Attention Span Ability Capable of Focused Attention Ability to Follow Commands Able to Follow One Step Commands with Repetition Memory Description Immediate Impaired Short Term Impaired Safety Awareness Decreased Ability to Apply Precautions Problem Solving Ability Unable to Identify Errors Needs Assist to Identify Solutions Executive Function Ability Unable to Filter Distractions Unable to Remember Details M7 OT- IP Mobility and Balance Start: 11/10/18 16:34 Freq: Status: Active Protocol: Document 11/12/18 10:30 PJAnanya (Rec: 11/12/18 11:38 [facility] [id number]) OT-Transfer Assessment Sit to and From Stand Sit to and from Stand Standby Assistance 1 Person Assistance Transfers Transfer Ability Standby Assistance 1 Person Assistance Technique Transfer Destination Chair Transfer Technique Stand Step Pivot Devices Transfer Assistive Devices Front Wheeled Walker Comments Mobility Comments Pt standing at sink with PICKLE WATER PUMP OPERATOR after using bathroom with PICKLE WATER PUMP OPERATOR when therapist arrived. OT- Gait Assessment Gait Gait Assistance Required: Contact Guard Assist Distance (Feet) 25 Assistive Devices Assistive Device Front Wheeled Walker Comments Gait Ability Comments pt declining gait belt this session OT- Balance Assessment Sitting Balance and Reactions Static Sitting Balance Ability Good Standing Balance and Reactions Static Standing Balance Ability Good Dynamic Standing Balance Ability Good Comments Other Balance Tests/Deviations/Treatment during dipak care and lower : body clothing management M9 OT- IP Assessment and Plan Start: 11/10/18 16:34 Freq: Status: Active Protocol: Document 11/12/18 10:30 PJM (Rec: 11/12/18 11:38 PJM [id number]) OT Summary Assessment and Plan Potential Rehabilitation Potential Good Summary OT Impairments Pain Strength Balance Functional Cognition Functional Mobility Grooming Dressing Toileting Bathing Toilet Transfers Shower Transfers Progress Towards Goals Progressing Toward Goals Assessment Summary Pt moving better today despite complaints of ongoing RLE pain with improved weight bearing on RLE noted during functional standing tasks such as grooming at sink. She is ambulating in room with FWW with close SBA to CGA. Pt needs frequent verbal cues to avoid twisting and forward bending and to remember FWW use. Pt more confused today requiring repetition of information and some decreased recall of education provided yesterday. Pt has hx of increased confusion on pain meds per chart notes. Pt distracted by her concerns about CT scan and appears to have high anxiety overlay that interferes with attention/concentration. Pt gives good effort in therapy and is motivated to improve. Anticipate pt will continue to improve as pain meds/steroids decreased. She is a good candidate for SNF rehab services prior to return home with working family. Goals Grooming Goal Standby Assistance Dressing Goal Standby Assistance Toileting Goal Standby Assistance Bathing Goal Minimal Assistance Toilet Transfer Goal Standby Assistance Shower Transfer Goal Contact Guard Assistance Patient/Caregiver Education Goal Demonstrate Post-Op Precautions Demonstrate Energy Conservation and Pacing Caregiver Independent Assisting Patient Days to Meet Goals 2 Frequency of Treatment Frequency Of Treatment Once a Day Treatment Plan OT Treatment Plan ADL Training Functional Cognition Training Patient/Family Education Discharge Planning Discharge Recommendations OT Discharge Recommendations SNF Rehab Home Equipment Needs to be determined pending progress
--- NOTE | 2018-11-12 10:34 | P.PN_ITS ---
Subjective Date Patient Seen: 11/12/18 Time Patient Seen: 10:32 Interval history: Her OT reports she walking better. Yesterday she would not put weight on the right leg. She reports she is feeling a little bit shaky today. Exam Vital Signs (past 8 hours): - 11/12/18 06:10 Temperature 98.0 F Pulse Rate 76 Respiratory Rate 18 Blood Pressure 142/76 H Pulse Oximetry 96 Fraction of Inspired Oxygen 21 Oxygen Delivery Method Room Air Oxygen Flow Rate 0 Const Orientation: alert and oriented x3 Objective Imaging Lumbar CT: My impression: CT scan shows good placement of hardware from L4 through S1. No evidence of any postoperative hematoma. Well decompressed central canal and right-sided neural foramen. Labs Result Diagrams: 11/10/18 06:00 Assessment & Plan Post-op Postoperative Procedures Operation Date: 11/09/18 10:45 Actual Procedures Side Surgeon p L4-5, L5-S1 TLIF w/Instru. fusion & bone graft Randall Cloud MD her CT scan looks good. I think this is all inflammatory. I am going to keep her on 1 more day of IV antibiotics and then plan for discharge to long-term. I think the shakiness is a side effect from the steroids but I will check a repeat HH today Quality VTE Deep Vein Thrombosis/Pulmonary Embolism Present on Admission: No
[2018-11-12 11:18] LABS: Hematocrit 27.8 % (36-46); Hemoglobin 9.4 g/dL (12.0-16.0)
--- NOTE | 2018-11-12 12:01 | PT.IPTN ---
Current Diagnoses Spondylolisthesis, lumbar region (11/09/18) Spinal stenosis, lumbar region with neurogenic claudication (11/09/18) Arthrodesis status (11/09/18) Surgery Performed Operation Date: 11/09/18 10:45 Actual Procedures p L4-5, L5-S1 TLIF w/Instru. fusion & bone graft - Randall Cloud MD Physical Therapy Treatment Note M2 PT-IP Current Condition Start: 11/10/18 12:46 Freq: NEEDED Status: Active Protocol: Document 11/10/18 10:13 AB (Rec: 11/10/18 12:59 AB [email or web address]) Physical Therapy Current Condition Current Condition Evaluation Date 11/10/18 Treatment Diagnosis s/p L4-5, L5-S1 TLIF/lami; difficulty in walking Onset Date 11/09/18 Precautions Lumbar Precautions Log Roll No Twisting Limit Bending Lifting Restriction of 10 lbs Gait Belt above Incisional Area Other Precautions Falls M3 PT-IP Subjective Start: 11/10/18 12:46 Freq: NEEDED Status: Active Protocol: Document 11/12/18 12:01 GGD (Rec: 11/12/18 12:01 GGD [id number]) Subjective Physical Therapy Visit Type Type Patient Refusal Notes Pt refused states that she just got into bed and would like to sleep.
--- NOTE | 2018-11-12 13:41 | PT.IPTN ---
Current Diagnoses Spondylolisthesis, lumbar region (11/09/18) Spinal stenosis, lumbar region with neurogenic claudication (11/09/18) Arthrodesis status (11/09/18) Surgery Performed Operation Date: 11/09/18 10:45 Actual Procedures p L4-5, L5-S1 TLIF w/Instru. fusion & bone graft - Randall Cloud MD Physical Therapy Treatment Note M2 PT-IP Current Condition Start: 11/10/18 12:46 Freq: NEEDED Status: Active Protocol: Document 11/10/18 10:13 AB (Rec: 11/10/18 12:59 AB [email or web address]) Physical Therapy Current Condition Current Condition Evaluation Date 11/10/18 Treatment Diagnosis s/p L4-5, L5-S1 TLIF/lami; difficulty in walking Onset Date 11/09/18 Precautions Lumbar Precautions Log Roll No Twisting Limit Bending Lifting Restriction of 10 lbs Gait Belt above Incisional Area Other Precautions Falls M3 PT-IP Subjective Start: 11/10/18 12:46 Freq: NEEDED Status: Active Protocol: Document 11/12/18 13:38 GGD (Rec: 11/12/18 13:41 GGD [id number]) Subjective Physical Therapy Visit Type Type Treatment Note Visit Start Time 13:00 Visit Stop Time 13:35 Total Visit Minutes 35 Number of MAJOR APPLIANCE ASSEMBLY SUPERVISOR Visits 3 Physical Therapy Visit Comments Patient Comments Pt willing to work with therapy. Therapy Pain Assessment Pain When Pain Assessed At Rest Pain Present Pain Present Pain Reported Location Lower Back Intensity 4 Scale Used Numeric (1 - 10) M4 PT-IP Mobility and Gait Start: 11/10/18 12:46 Freq: NEEDED Status: Active Protocol: Document 11/12/18 13:38 GGD (Rec: 11/12/18 13:41 GGD [id number]) PT-Bed Mobility Assessment Rolling Level of Assist Standby Assistance Supine to Sit Supine to Sit Contact Guard Assistance Bedrails Sit to Supine Sit to Supine Contact Guard Assistance Bedrails Scooting Scooting to Edge of Bed Standby Assistance PT-Transfer Assessment Sit to and From Stand Sit to and from Stand Contact Guard Assistance 1 Person Assistance Use of Upper Extremities Equipment Transfer Assistive Device Gait Belt Front Wheeled Walker Transfers Transfer Destination Chair Transfer Ability Level of Assist Contact Guard Assistance 1 Person Assistance Use of Upper Extremities Comments Mobility Comments Pt needed min cues for full log roll. Gait Assessment Gait Gait Assistance Required: Contact Guard Assist Distance (Feet) 120 Assistive Devices Assistive Device Gait Belt Front Wheeled Walker Orthotic/Prosthetic Devices or Brace: No Gait Deviations General Gait Pattern Antalgic Decreased Stride Length Decreased Feet Clearance Narrow Based Gait Factors Limiting Gait Function Factors Limiting Gait Function Decreased Sensation Decreased Strength Limited Range of Motion Pain Poor Balance M5 PT-IP Objective Assessments Start: 11/10/18 12:46 Freq: NEEDED Status: Active Protocol: Document 11/10/18 10:13 AB (Rec: 11/10/18 12:59 AB [id number]) Orientation Orientation/Cognition Level of Alertness Alert Orientation Name Place Situation Language Function Ability No Deficits Noted Safety Awareness Decreased Safety Awareness Memory Description Short Term Impaired Gross Range of Motion Lower Extremity ROM Assessment Within Functional Limits Strength Lower Extremity Strength Assessment Bilaterally Impaired Hip 3+/5 Knee 3+/5 Ankle 3+/5 Sensation Assessment Sensation Gross Sensation Right LE Impaired Light Touch Impaired Proprioception (Position) Impaired Sensation Description Numbness Pain Muscle Tone Muscle Tone WNL Yes M6 PT-IP Treatment Start: 11/10/18 12:46 Freq: NEEDED Status: Active Protocol: Document 11/12/18 13:38 GGD (Rec: 11/12/18 13:41 GGD [id number]) Physical Therapy Treatment Education Education Provided Precautions M7 PT-IP Assessment and Plan Start: 11/10/18 12:46 Freq: NEEDED Status: Active Protocol: Document 11/12/18 13:38 GGD (Rec: 11/12/18 13:41 GGD [id number]) PT Summary Assessment and Plan Summary Assessment Summary Pt improving slowly. She was able to progress gait. She did need cues for precautions and safety. Frequency of Treatment Frequency Of Treatment Twice a Day Recommendations To Nursing Amount of Assist Needed 1 Person Assist Discharge Recommendations PT Discharge Recommendations SNF Rehab
--- NOTE | 2018-11-12 14:43 | CM.DPNOTE ---
DC held today, Dr Cloud expects pt will be ready to DC to [facility] tomorrow, Thursday. Updated Candis at [facility], cabulance through [facility] has been arranged for 1400 p/u tomorrow. This [employer] following closely for coordination of DCP. OLIVIER
[2018-11-12 17:58] VITALS: BP 112/67; PULSE 73; RESP 20; TEMP 36.6; O2SAT 96
[2018-11-12 20:42] VITALS: BP 131/73; PULSE 68; RESP 21; TEMP 36.8; O2SAT 98
[2018-11-12] MEDS: SERTRALINE 50 MG TABLET 200 MG PO (21:38)
[2018-11-12] MEDS: clonazePAM 0.5 MG TABLET 1 MG PO (21:38)
[2018-11-12 21:39] VITALS: BP 131/73; PULSE 68
[2018-11-13 00:07] VITALS: BP 106/63; PULSE 66; RESP 16; TEMP 36.7; O2SAT 98
--- NOTE | 2018-11-13 01:04 | PC.NURSE ---
2300- Pt POD#3 Lami & Tlift; new dressing in place and CDI. Moving 1PA w/ FWW; VSS on RA; tolerating regular diet w/ stool softeners as pt still needs a BM. L wrist IV saline locked; PO oxycodone for breakthrough pain.
[2018-11-13] MEDS: DEXAMETHASONE 4 MG/ML VIAL IV (05:47)
[2018-11-13 05:56] VITALS: BP 116/65; PULSE 63; RESP 16; TEMP 36.8; O2SAT 97
[2018-11-13] MEDS: OXYCODONE IR 5 MG TABLET 15 MG PO ×3 (05:57→12:55)
[2018-11-13 07:59] VITALS: BP 134/79; PULSE 62; RESP 17; TEMP 36.9; O2SAT 97
--- NOTE | 2018-11-13 09:24 | P.DS_ITS ---
History of Present Illness Date Patient Seen: 11/13/18 Time Patient Seen: 09:24 Chief complaint: [id number] Narrative: [age] year old female with intractable pain from stenosis. They had failed conservative management and requested operative intervention. Risks and benefits of surgery were discussed and appropriate consents were obtained. Discharge Providers Date of admission: 11/09/18 08:51 Discharge Date: 11/13/18 Primary care physician: Mikki Martinez MD Consults: 11/04/18 12:52 Consult to Respiratory Therapy Evaluate & Treat Comment: Daily smoker (wants patch), untreated sleep apnea Physician Instructions: Evaluate and treat 11/09/18 16:27 Consult to Occupational Therapy Evaluate & Treat Comment: Physician Instructions: Evaluate and treat Consult to Physical Therapy Evaluate & Treat Comment: Physician Instructions: Evaluate and Treat 11/09/18 17:12 Consult to Respiratory Therapy Evaluate & Treat Comment: Physician Instructions: Evaluate and treat Discharge provider: Coreen Gutierrez PA-C Summary Discharge Diagnosis: s/p lumbar fusion sleep apnea systemic lupus erythematosus scoliosis osteoarthritis gout IBD Fibromyalgia Diabetes Depression Cerebroavascular accident Hospital Course: [place] was admitted for L4-5 and L5-S1 TLIF with Dr. alfonso, and she consented to procedure. Patient has had significant right leg pain without relief with steroids. CT scan was obtained and all hardware and cages were in good alignment with no sign of hematoma. Patient explained this is likely inflammatory from the changes from surgery. She was having significant pain prior to surgery as well. On postop day 4 she was ready to DC to [facility]. She is eating and voiding without difficulty or assistance. Pain was a dequately controlled. Exam Vital Signs (past 8 hours): - 11/13/18 05:56 11/13/18 07:59 Temperature 98.2 F 98.5 F Pulse Rate 63 62 Respiratory Rate 16 17 Blood Pressure 116/65 134/79 Pulse Oximetry 97 97 Fraction of Inspired Oxygen 21 Oxygen Delivery Method Room Air Oxygen Flow Rate 0 Narrative Exam Narrative: Patient lying in bed in no acute distress. She is alert and oriented x3. Dressing on back is CDI. Calves are soft, compressible, nontender bilaterally. pulses are symmetrical. Pain adequately controlled this morning. No complaints just that she is slow to mobilize with therapy. Objective Labs Result Diagrams: 11/12/18 11:00 Labs: Laboratory Results - last 24 hr 11/12/18 11:00 Hgb 9.4 L Hct 27.8 L Discharge Plan Discharge Plan Patient Disposition: SNF Transfer to: [facility], [place] Under care of provider: Neftali TORRES Transportation: Facility vehicle Consult as needed: Dental, Hearing, Mental health, Podiatry and Vision I certify the postop hospital mcfp care is medically necessary on a continuing basis for any conditions for which he/ she received care during this hospitalization.: Yes The receiving facility has agreed to accept transfer and provide medical treatment.: Yes Discharge Med Rec/Prescriptions Prescriptions: New celecoxib [Celebrex] 200 mg Capsule 200 mg PO BID Qty: 60 RF: 0 docusate sodium [DOK] 100 mg Capsule 100 mg PO BID Qty: 60 RF: 0 oxycodone 5 mg Tablet 5 mg PO Q4HR Qty: 60 RF: 0 hydroxyzine pamoate 25 mg Capsule 25 mg PO Q6HR Qty: 60 RF: 0 clonazepam 0.5 mg Tablet 1 mg PO BEDTIME Qty: 30 RF: 0 Continued cyclobenzaprine 10 mg Tablet 10 mg PO TID RF: 0 gabapentin 600 mg Tablet 300 mg PO BEDTIME PRN (Reason: anxiety, nervousness) RF: 0 sertraline 100 mg Tablet 200 mg PO BEDTIME RF: 0 propranolol 40 mg Tablet 80 mg PO BID RF: 0 lisinopril 5 mg Tablet 5 mg PO BID RF: 0 Discontinued ibuprofen 200 mg Capsule 2 - 3 cap PO BID-TID PRN (Reason: Pain) RF: 0 clonazepam 0.5 mg Tablet 0.5 mg PO TID RF: 0 hydrocodone-acetaminophen [Vicodin HP] 10-300 mg Tablet 1 tab PO Q4-6H PRN (Reason: Pain (Scale Score 4-6)) RF: 0 Follow up/Referrals: Randall Cloud MD [Physician] - Mikki Martinez MD [Primary Care Provider] - Provider Discharge Instructions Diet: Diet as Tolerated Liquid consistency: Normal/Thin Food texture: Regular Activity: No excessive bending, lifting, or twisting Cold/Heat Therapy: as needed Skin/Wound/Dressing Care Report to your healthcare provider any signs of infection, such as:: chills, fever and increased pain Dressing: Coversite dressing prior to discharge [facility] Reason for rehabilitation: Post-operative therapy Rehab type: Physical therapy and Occupational therapy Visit Report/Discharge Packet Instructions: DI for Transforaminal Lumbar Interbody Fusion Discharge Data Primary Care Provider: Mikki Martinez Attending Provider: Randall Cloud Admit Date/Time: 11/09/18 08:51 Quality VTE Deep Vein Thrombosis/Pulmonary Embolism Present on Admission: No
[2018-11-13] MEDS: CELECOXIB 200 MG CAPSULE PO (09:45)
[2018-11-13] MEDS: DOCUSATE 100 MG CAPSULE PO (09:45)
[2018-11-13] MEDS: LISINOPRIL 5 MG TABLET PO (09:46)
[2018-11-13] MEDS: PROPRANOLOL 40 MG TABLET 80 MG PO (09:46)
[2018-11-13] MEDS: NICOTINE 14 PATCH 14 MG TOP (09:46)
[2018-11-13] MEDS: SODIUM CHLORIDE 0.9% FLUSH 10 ML IV (09:46)
--- NOTE | 2018-11-13 11:30 | PT.IPTN ---
Current Diagnoses Spondylolisthesis, lumbar region (11/09/18) Spinal stenosis, lumbar region with neurogenic claudication (11/09/18) Arthrodesis status (11/09/18) Surgery Performed Operation Date: 11/09/18 10:45 Actual Procedures p L4-5, L5-S1 TLIF w/Instru. fusion & bone graft - Randall Cloud MD Physical Therapy Treatment Note M2 PT-IP Current Condition Start: 11/10/18 12:46 Freq: NEEDED Status: Active Protocol: Document 11/10/18 10:13 AB (Rec: 11/10/18 12:59 AB [email or web address]) Physical Therapy Current Condition Current Condition Evaluation Date 11/10/18 Treatment Diagnosis s/p L4-5, L5-S1 TLIF/lami; difficulty in walking Onset Date 11/09/18 Precautions Lumbar Precautions Log Roll No Twisting Limit Bending Lifting Restriction of 10 lbs Gait Belt above Incisional Area Other Precautions Falls M3 PT-IP Subjective Start: 11/10/18 12:46 Freq: NEEDED Status: Active Protocol: Document 11/13/18 11:30 GGD (Rec: 11/13/18 11:49 GGD [id number]) Subjective Physical Therapy Visit Type Type Treatment Note Visit Start Time 11:00 Visit Stop Time 11:30 Total Visit Minutes 30 Number of RELEASE AND TECHNICAL RECORDS CLERK Visits 4 Physical Therapy Visit Comments Patient Comments Pt states she is tired. Therapy Pain Assessment Pain When Pain Assessed At Rest Pain Present Pain Present Pain Reported Location Lower Back Intensity 5 Scale Used Numeric (1 - 10) M4 PT-IP Mobility and Gait Start: 11/10/18 12:46 Freq: NEEDED Status: Active Protocol: Document 11/13/18 11:30 GGD (Rec: 11/13/18 11:49 GGD [id number]) PT-Bed Mobility Assessment Rolling Level of Assist Standby Assistance Supine to Sit Supine to Sit Contact Guard Assistance Bedrails Scooting Scooting to Edge of Bed Standby Assistance PT-Transfer Assessment Sit to and From Stand Sit to and from Stand Contact Guard Assistance 1 Person Assistance Use of Upper Extremities Equipment Transfer Assistive Device Gait Belt Front Wheeled Walker Transfers Transfer Destination Chair Toilet Transfer Ability Level of Assist Contact Guard Assistance 1 Person Assistance Use of Upper Extremities Gait Assessment Gait Gait Assistance Required: Contact Guard Assist Distance (Feet) 220 Assistive Devices Assistive Device Gait Belt Front Wheeled Walker Orthotic/Prosthetic Devices or Brace: No Gait Deviations General Gait Pattern Antalgic Decreased Stride Length Decreased Feet Clearance Narrow Based Gait Factors Limiting Gait Function Factors Limiting Gait Function Decreased Sensation Decreased Strength Limited Range of Motion Pain Poor Balance M5 PT-IP Objective Assessments Start: 11/10/18 12:46 Freq: NEEDED Status: Active Protocol: Document 11/10/18 10:13 AB (Rec: 11/10/18 12:59 AB [id number]) Orientation Orientation/Cognition Level of Alertness Alert Orientation Name Place Situation Language Function Ability No Deficits Noted Safety Awareness Decreased Safety Awareness Memory Description Short Term Impaired Gross Range of Motion Lower Extremity ROM Assessment Within Functional Limits Strength Lower Extremity Strength Assessment Bilaterally Impaired Hip 3+/5 Knee 3+/5 Ankle 3+/5 Sensation Assessment Sensation Gross Sensation Right LE Impaired Light Touch Impaired Proprioception (Position) Impaired Sensation Description Numbness Pain Muscle Tone Muscle Tone WNL Yes M6 PT-IP Treatment Start: 11/10/18 12:46 Freq: NEEDED Status: Active Protocol: Document 11/13/18 11:30 GGD (Rec: 11/13/18 11:49 GGD [id number]) Physical Therapy Treatment Education Education Provided Precautions M7 PT-IP Assessment and Plan Start: 11/10/18 12:46 Freq: NEEDED Status: Active Protocol: Document 11/13/18 11:30 GGD (Rec: 11/13/18 11:49 GGD [id number]) PT Summary Assessment and Plan Summary Assessment Summary Pt improved tolerance to gait. She needs cues for back precautions with mobility. Frequency of Treatment Frequency Of Treatment Twice a Day Recommendations To Nursing Amount of Assist Needed 1 Person Assist Discharge Recommendations PT Discharge Recommendations SNF Rehab
--- NOTE | 2018-11-13 13:03 | PC.NURSE ---
Addendum entered by Josee Aranda R.N. 11/13/18 13:23: Transport arrived early. Assisted patient into wheelchair, transfer packet given to transport staff. All personal belongings sent with patient at discharge including cellphone, glasses, backpack, clothing, shoes, etc. Taken out by transport staff. Original Note: Transfer to SNF: IV dc'd intact. All personal belongings collected and ready to send with patient at discharge. Transfer packet, including scripts for Clonazepam and Oxycodone, all ready to go. Report called to Isatu at [facility]. Patient medicated with 15 mg PO Oxycodone ahead of planned transport at 1400. She's in bed, is going to try and nap for the next hour. Able to make needs known and calls appropriately. Light in reach, bed alarm on.
--- NOTE | 2018-11-13 16:16 | CM.DPNOTE ---
DC Note DC order in place for [facility]; pt remains agreeable to this plan. [facility] staff aware of cabulance p/u at 1400, [facility] arrived at 1315 asking if they could take pt early? Alerted Eladia in admissions at [facility] today that pt was leaving a little early. DC ppk to include signed med list, DC order and DC summary and completed PASRR faxed to [facility].. IMM reviewed and signed by pt. P: DC today to [facility] via w/c [place]. ALESSANDRA Calle
== END 2018-11-13 13:24 | DRG 455 ==
PROVIDERS: Admitting Provider Orthopaedic Surgery; PCP Internal Medicine Geriatric Medicine; Visit Provider Orthopaedic Surgery
PROC: 0SG00AJ Fusion of Lumbar Vertebral Joint with Interbody Fusion Device, Posterior Approach, Anterior Column, Open Approach (ICD-10-PCS; principal; 2018-11-09 10:45)
DX: M48.062 Spinal stenosis, lumbar region with neurogenic claudication (principal); M43.16 Spondylolisthesis, lumbar region; Z98.1 Arthrodesis status; M32.9 Systemic lupus erythematosus, unspecified; G47.33 Obstructive sleep apnea (adult) (pediatric); M79.7 Fibromyalgia; E11.9 Type 2 diabetes mellitus without complications; F32.9 Major depressive disorder, single episode, unspecified; F17.210 Nicotine dependence, cigarettes, uncomplicated; M79.604 Pain in right leg
CPT/HCPCS: 36415; 72100; 72131; 76000; 85014; 85018; 94760; 94762; 97116; 97162; 97165; 97530; 97535; C1776; J0330; J0595; J0690; J1100; J1170; J2250; J2274; J2405; J2704; J3010; J3410